=== PATIENT | male | born 1990 | race Caucasian/White ===

== ENCOUNTER 2019-12-30 12:08 | Emergency (ER) | payer MEDICAID ==
[~2019-12-30] VITALS: Ht 172.7 cm; Wt 78.5 kg
[2019-12-30 12:16] VITALS: Ht 172.7 cm; Wt 78.5 kg
[2019-12-30 14:18] LABS: BASOPHIL % 0.4 % (0-2); PLATELET COUNT 336 x10^3mcL (130-400); RED CELL DISTRIBUTION WIDTH 12.6 % (11.5-14.5)
[2019-12-30 14:27] LABS: CALCIUM 8.3 mg/dL (8.5-10.1); CARBON DIOXIDE 31.4 mmol/L (21-32); CHLORIDE SERUM 104 mmol/L (98-107); CREATININE SERUM 0.9 mg/dL (0.7-1.3); GFR1 > 60 mL/min; GLUCOSE SERUM 98 mg/dL (74-106); POTASSIUM SERUM 3.4 mmol/L (3.5-5.1); SODIUM SERUM 142 mmol/L (136-145)
[2019-12-30 14:31] LABS: ALBUMIN 3.5 g/dL (3.4-5.0); ALKALINE PHOSPHATASE 73 U/L (46-116); ALT/SGPT 30 U/L (16-63); AST/SGOT 19 U/L (15-37); BILIRUBIN TOTAL 0.7 mg/dL (0.20-1.00); CHOLESTEROL 142 mg/dL (<200); LIPASE 57 IU/L (73-393); TOTAL PROTEIN, SERUM 7.1 g/dL (6.4-8.2)
[2019-12-30 14:33] LABS: HDL CHOLESTEROL 34 mg/dL (40-60)
[2019-12-30 15:07] LABS: microscopic required? NO
[2019-12-30 15:14] LABS: urine erythrocyte NEGATIVE (NEGATIVE)
[2019-12-30 15:38] LABS: AMPHETAMINE QUAL UR POSITIVE (See below)
[2019-12-30 17:55] VITALS: BP 144/94
== END 2019-12-30 17:55 | disposition home or self-care (01) ==
LOC: ED 12:08
PROVIDERS: Emergency Medicine
DX: K56.7 Ileus, unspecified (principal); E87.6 Hypokalemia; F15.20 Other stimulant dependence, uncomplicated
CPT/HCPCS: 83880; J1630; J2060; J7030; Q0092